=== PATIENT | female | born 1970 | race Caucasian/White ===

== ENCOUNTER → 2020-05-14 | Outpatient (CLI) | payer OTHER | LOC: SLEEP 14:15 | DX: G47.33 Obstructive sleep apnea (adult) (pediatric) (principal); G47.419 Narcolepsy without cataplexy; E66.9 Obesity, unspecified | CPT/HCPCS: 95811 ==

== ENCOUNTER 2021-11-01 19:10 | Emergency (ER) | payer OTHER, BC | END 2021-11-01 20:17 | disposition home or self-care (01) | LOC: ER1 19:10 | DX: S80.01XA Contusion of right knee, initial encounter (principal); V49.9XXA Car occupant (driver) (passenger) injured in unspecified traffic accident, initial encounter; W22.10XA Striking against or struck by unspecified automobile airbag, initial encounter | CPT/HCPCS: 73562; 99283 ==